=== PATIENT | male | born 1965 | race Caucasian/White ===

== ENCOUNTER 2017-10-18 21:04 | Inpatient (IN) | payer OTHER ==
[~2017-10-18] VITALS: Ht 177.8 cm; Wt 97.0 kg
[2017-10-18] MEDS ORDERED: ondansetron/PF 4mg/2ml inj IV ONE (21:35)
[2017-10-18] MEDS ORDERED: normal saline 1000ML IV soln IVB ONE (21:35)
[2017-10-18] MEDS ORDERED: fentaNYL/PF 50MCG/1 ML 2ML syringe IV ONE ×3 (21:35→22:45)
[2017-10-18] MEDS ORDERED: ketorolac trometh. 30mg/ml inj. IV ONE (21:35)
[2017-10-18 21:52] LABS: PROTHROMBIN TIME 10.6 SECONDS (9.0-12.0)
[2017-10-18 21:54] LABS: BASOPHILS % (AUTO) 0.5 % (0-1); EOSINOPHILS # (AUTO) 0.2 X10'3 (0-0.9); EOSINOPHILS % (AUTO) 2.1 % (0-6); HEMATOCRIT 43.5 % (42.0-52.0); HEMOGLOBIN 14.6 g/dl (14.0-17.9); LYMPHOCYTES # (AUTO) 1.3 X10'3 (1.1-4.8); LYMPHOCYTES % (AUTO) 13.4 % (21-51); MEAN CORPUSCULAR HEMOGLOBIN 28.8 PG (27.0-31.0); MEAN CORPUSCULAR HGB CONC 33.6 % (33.0-36.5); MEAN CORPUSCULAR VOLUME 85.6 FL (78-98); MEAN PLATELET VOLUME 9.9 FL (7.4-10.4); MONOCYTES # (AUTO) 0.7 X10'3 (0-0.9); MONOCYTES % (AUTO) 7.3 % (2-12); NEUTROPHILS # (AUTO) 7.8 X10'3 (1.8-7.7); NEUTROPHILS % (AUTO) 76.7 % (42-75); PLATELET COUNT 239 X10'3 (140-440); RED BLOOD COUNT 5.09 X10'6 (4.70-6.10); RED CELL DISTRIBUTION WIDTH 11.6 % (11.5-14.5)
[2017-10-18 21:56] LABS: ALANINE AMINOTRANSFERASE 47 U/L (12-78); ALBUMIN 4.2 G/DL (3.4-5.0); ALBUMIN/GLOBULIN RATIO 1.1 (1.1-1.5); ALKALINE PHOSPHATASE 48 IU/L (46-116); ANION GAP 11 (8-16); ASPARTATE AMINO TRANSFERASE 25 U/L (10-37); BILIRUBIN,TOTAL 0.4 MG/DL (0.1-1.0); BLOOD UREA NITROGEN 27 MG/DL (7-18); BUN/CREATININE RATIO 16.6 (5.4-32.0); CALCIUM 9.9 MG/DL (8.5-10.1); CHLORIDE 99 MMOL/L (99-107); CREATININE 1.63 MG/DL (0.60-1.10); GLUCOSE 124 MG/DL (70-104); POTASSIUM 3.6 MMOL/L (3.5-5.1); SODIUM 138 MMOL/L (135-145); TOTAL CARBON DIOXIDE 27.8 MMOL/L (24-32); TOTAL PROTEIN 7.9 G/DL (6.4-8.2); eGFR 45 ML/MIN
[2017-10-18 22:13] LABS: CLARITY,URINE SLIGHTLY CLOUDY (Clear); COLOR,URINE YELLOW (Yellow); GLUCOSE, URINE NEGATIVE (Neg); KETONES,URINE NEGATIVE (Neg); LEUKOCYTE ESTERASE ,URINE NEGATIVE (Neg); NITRITES, URINE NEGATIVE (Neg); OCCULT BLOOD,URINE LARGE (Neg); PH,URINE 5.5 (4.8-8.0); PROTEIN,URINE TRACE mg/dl (Neg); UROBILINOGEN,URINE 0.2 E.U/dL (0.2-1.0)
[2017-10-18 22:17] LABS: UA COLLECTION TYPE URINAL
[2017-10-18 22:19] LABS: BACTERIA,URINE FEW /HPF (Neg); MUCUS STRANDS FEW /LPF (Neg); RBC,URINE 50-100 /HPF (0-2); SQUAMOUS EPITHELIAL CELL,UR FEW /LPF (FEW); WBC,URINE 0-4 /HPF (0-4)
[2017-10-18] MEDS ORDERED: HYDR25TA4 PO (22:52)
[2017-10-18] MEDS ORDERED: HYDROmorphone 1 mg/ml syringe IV ONE (23:25)
[2017-10-18] MEDS ORDERED: FENO160T13 PO (23:26)
[2017-10-18] MEDS: tamsulosin 0.4mg capsule PO SCH (23:38)
[2017-10-18] MEDS ORDERED: potassium Cl 20 mEq SR tablet PO PRN ×2 (23:45)
[2017-10-18] MEDS ORDERED: magnesium Cl slow-release 64mg tablet PO PRN (23:45)
[2017-10-18] MEDS ORDERED: potassium Cl 40MEQ/NS 500ml 500 ML IV PRN ×2 (23:45)
[2017-10-18] MEDS ORDERED: magnesium 4gm in 100ml NS 100 ML IV PRN (23:45)
[2017-10-18] MEDS ORDERED: HYDROmorphone 1 mg/ml syringe IV PRN (23:45)
[2017-10-18] MEDS ORDERED: magnesium 1gm/100ml D5W IVPB 100 ML IV PRN (23:45)
[2017-10-18] MEDS ORDERED: HYDROchlorothiazide 25mg tablet PO ONE (23:55)
[2017-10-19] MEDS: normal saline 1000ml 1,000 ML IV SCH ×2 (00:13→17:16)
[2017-10-19 01:05] VITALS: BP 148/95
[2017-10-19 05:47] LABS: BASOPHILS % (AUTO) 0.4 % (0-1); EOSINOPHILS % (AUTO) 0.2 % (0-6); HEMATOCRIT 40.4 % (42.0-52.0); HEMOGLOBIN 13.8 g/dl (14.0-17.9); LYMPHOCYTES # (AUTO) 0.7 X10'3 (1.1-4.8); LYMPHOCYTES % (AUTO) 8.2 % (21-51); MEAN CORPUSCULAR HEMOGLOBIN 29.7 PG (27.0-31.0); MEAN CORPUSCULAR HGB CONC 34.2 % (33.0-36.5); MEAN CORPUSCULAR VOLUME 86.6 FL (78-98); MEAN PLATELET VOLUME 10.1 FL (7.4-10.4); MONOCYTES # (AUTO) 0.7 X10'3 (0-0.9); MONOCYTES % (AUTO) 7.6 % (2-12); NEUTROPHILS # (AUTO) 7.6 X10'3 (1.8-7.7); NEUTROPHILS % (AUTO) 83.6 % (42-75); PLATELET COUNT 193 X10'3 (140-440); RED BLOOD COUNT 4.66 X10'6 (4.70-6.10); RED CELL DISTRIBUTION WIDTH 11.9 % (11.5-14.5)
[2017-10-19] MEDS: HYDROmorphone 1 mg/ml syringe IV PRN ×3 (05:53→19:05)
[2017-10-19 06:09] LABS: ALBUMIN 3.7 G/DL (3.4-5.0); ANION GAP 9 (8-16); BLOOD UREA NITROGEN 27 MG/DL (7-18); BUN/CREATININE RATIO 13.8 (5.4-32.0); CALCIUM 8.9 MG/DL (8.5-10.1); CHLORIDE 102 MMOL/L (99-107); CREATININE 1.95 MG/DL (0.60-1.10); GLUCOSE 118 MG/DL (70-104); MAGNESIUM 1.7 MG/DL (1.5-2.4); POTASSIUM 4.4 MMOL/L (3.5-5.1); SODIUM 139 MMOL/L (135-145); TOTAL CARBON DIOXIDE 27.9 MMOL/L (24-32); eGFR 37 ML/MIN
[2017-10-19 07:11] VITALS: BP 134/80
[2017-10-19] MEDS: K and/or MAG REPLACEMENT MC SCH (07:27)
[2017-10-19] MEDS ORDERED: tamsulosin 0.4mg capsule PO ONE (09:55)
[2017-10-19 11:47] VITALS: BP 122/76
[2017-10-19] MEDS: ondansetron/PF 4mg/2ml inj IV PRN (17:12)
[2017-10-19 19:30] VITALS: BP 124/71
[2017-10-19] MEDS ORDERED: tamsulosin 0.4mg capsule PO SCH (21:00)
[2017-10-19] MEDS: tamsulosin 0.4mg capsule PO SCH (21:34)
[2017-10-19] MEDS: famotidine 20mg tablet PO SCH (21:34)
[2017-10-19] MEDS: acetaminophen 325mg tablet PO PRN (23:56)
[2017-10-20] VITALS (16 sets, daily range): BP systolic 97–146; BP diastolic 52–93
[2017-10-20] MEDS: HYDROmorphone 1 mg/ml syringe IV PRN ×4 (00:02→23:26)
[2017-10-20] MEDS: normal saline 1000ml 1,000 ML IV SCH ×4 (02:22→21:11)
[2017-10-20 05:01] LABS: BASOPHILS % (AUTO) 0.2 % (0-1); EOSINOPHILS # (AUTO) 0.2 X10'3 (0-0.9); EOSINOPHILS % (AUTO) 3.3 % (0-6); HEMATOCRIT 36.1 % (42.0-52.0); HEMOGLOBIN 12.5 g/dl (14.0-17.9); LYMPHOCYTES # (AUTO) 1.1 X10'3 (1.1-4.8); LYMPHOCYTES % (AUTO) 16.6 % (21-51); MEAN CORPUSCULAR HEMOGLOBIN 29.8 PG (27.0-31.0); MEAN CORPUSCULAR HGB CONC 34.5 % (33.0-36.5); MEAN CORPUSCULAR VOLUME 86.2 FL (78-98); MEAN PLATELET VOLUME 9.9 FL (7.4-10.4); MONOCYTES # (AUTO) 0.6 X10'3 (0-0.9); MONOCYTES % (AUTO) 10.1 % (2-12); NEUTROPHILS # (AUTO) 4.4 X10'3 (1.8-7.7); NEUTROPHILS % (AUTO) 69.8 % (42-75); PLATELET COUNT 153 X10'3 (140-440); RED BLOOD COUNT 4.19 X10'6 (4.70-6.10); RED CELL DISTRIBUTION WIDTH 12.5 % (11.5-14.5); WHITE BLOOD COUNT 6.4 X10'3 (4.5-11.0)
[2017-10-20 05:10] LABS: ANION GAP 2 (8-16); BLOOD UREA NITROGEN 29 MG/DL (7-18); CALCIUM 8.1 MG/DL (8.5-10.1); CHLORIDE 102 MMOL/L (99-107); CREATININE 2.41 MG/DL (0.60-1.10); GLUCOSE 110 MG/DL (70-104); MAGNESIUM 1.7 MG/DL (1.5-2.4); POTASSIUM 3.3 MMOL/L (3.5-5.1); SODIUM 135 MMOL/L (135-145); TOTAL CARBON DIOXIDE 30.7 MMOL/L (24-32); eGFR 29 ML/MIN
[2017-10-20] MEDS: ondansetron/PF 4mg/2ml inj IV PRN ×3 (08:08→23:33)
[2017-10-20] MEDS: K and/or MAG REPLACEMENT MC SCH (08:14)
[2017-10-20 10:00] LABS: PRE OP PROTIME 10.6 SECONDS (9.0-12.0)
[2017-10-20] MEDS: acetaminophen 325mg tablet PO PRN (10:03)
[2017-10-20 10:05] LABS: ALBUMIN 3.1 G/DL (3.4-5.0); ALBUMIN/GLOBULIN RATIO 0.9 (1.1-1.5); ALKALINE PHOSPHATASE 32 IU/L (46-116); BLOOD UREA NITROGEN 28 MG/DL (7-18); BUN/CREATININE RATIO 11.6 (5.4-32.0); CALCIUM 8.3 MG/DL (8.5-10.1); CHLORIDE 101 MMOL/L (99-107); CREATININE 2.42 MG/DL (0.60-1.10); PRE OP ALT 27 U/L (30-65); PRE OP ANION GAP 7 (8-16); PRE OP AST 20 U/L (10-37); PRE OP BILIRUB, TOTAL 0.4 MG/DL (0.0-1.0); PRE OP GLUCOSE 109 MG/DL (70-104); PRE OP POTASSIUM 3.4 MMOL/L (3.4-5.1); PRE OP SODIUM 137 MMOL/L (135-145); TOTAL CARBON DIOXIDE 29.2 MMOL/L (24-32); TOTAL PROTEIN 6.4 G/DL (6.4-8.2); eGFR 29 ML/MIN
[2017-10-20] MEDS: fenofibrate 145mg tablet PO SCH (11:49)
[2017-10-20] MEDS ORDERED: iohexol 300 MG/1 ML 50ml polymer ONE (16:13)
[2017-10-20] MEDS ORDERED: sevoflurane 250ml liquid IH ONE (17:32)
[2017-10-20] MEDS ORDERED: ondansetron/PF 4mg/2ml inj ONE (17:35)
[2017-10-20] MEDS ORDERED: dexamethasone sod phosphate 4mg/ml inj. ONE (17:35)
[2017-10-20] MEDS ORDERED: LIDOcaine 2% (20mg/ml) 5ml vial ONE (17:35)
[2017-10-20] MEDS ORDERED: propofol inj 20 ML IV ONE (17:35)
[2017-10-20] MEDS ORDERED: fentaNYL/PF 50MCG/1 ML 2ML syringe ONE (17:36)
[2017-10-20] MEDS ORDERED: midazolam 2 mg/2 ml injection ONE (17:36)
[2017-10-20] MEDS ORDERED: ceFAZolin 1000mg inj ONE ×2 (17:45)
[2017-10-20] MEDS ORDERED: ringers solution, lacted 1,000 ML IV SCH (18:01)
[2017-10-20] MEDS ORDERED: ondansetron/PF 4mg/2ml inj IV PRN (18:05)
[2017-10-20] MEDS ORDERED: morphine 4 MG/ML inj SYRINge IV PRN ×2 (18:05)
[2017-10-20] MEDS ORDERED: enalaprilat dihydrate 2.5mg/2ml vial IV PRN (18:05)
[2017-10-20] MEDS ORDERED: fentaNYL/PF 50MCG/1 ML 2ML syringe IV PRN ×2 (18:05)
[2017-10-20] MEDS ORDERED: hydrALAZINE 20mg/ml inj. IV PRN (18:05)
[2017-10-20] MEDS: famotidine 20mg tablet PO SCH (21:20)
[2017-10-20] MEDS: tamsulosin 0.4mg capsule PO SCH (21:20)
[2017-10-21] VITALS: BP 146/85
[2017-10-21 04:17] VITALS: BP 125/71
[2017-10-21 05:13] LABS: BASOPHILS % (AUTO) 0.3 % (0-1); EOSINOPHILS % (AUTO) 0.1 % (0-6); LYMPHOCYTES # (AUTO) 0.4 X10'3 (1.1-4.8); LYMPHOCYTES % (AUTO) 7.8 % (21-51); MEAN CORPUSCULAR HEMOGLOBIN 29.4 PG (27.0-31.0); MEAN CORPUSCULAR HGB CONC 34.1 % (33.0-36.5); MEAN CORPUSCULAR VOLUME 86.3 FL (78-98); MEAN PLATELET VOLUME 9.9 FL (7.4-10.4); MONOCYTES # (AUTO) 0.3 X10'3 (0-0.9); MONOCYTES % (AUTO) 6.1 % (2-12); NEUTROPHILS # (AUTO) 4.8 X10'3 (1.8-7.7); NEUTROPHILS % (AUTO) 85.7 % (42-75); PLATELET COUNT 182 X10'3 (140-440); RED BLOOD COUNT 4.41 X10'6 (4.70-6.10); RED CELL DISTRIBUTION WIDTH 12.4 % (11.5-14.5); WHITE BLOOD COUNT 5.6 X10'3 (4.5-11.0)
[2017-10-21 05:23] LABS: ALBUMIN 3.3 G/DL (3.4-5.0); ANION GAP 10 (8-16); BLOOD UREA NITROGEN 23 MG/DL (7-18); BUN/CREATININE RATIO 15.2 (5.4-32.0); CALCIUM 9.1 MG/DL (8.5-10.1); CHLORIDE 100 MMOL/L (99-107); CREATININE 1.51 MG/DL (0.60-1.10); GLUCOSE 136 MG/DL (70-104); MAGNESIUM 1.8 MG/DL (1.5-2.4); POTASSIUM 3.7 MMOL/L (3.5-5.1); SODIUM 135 MMOL/L (135-145); TOTAL CARBON DIOXIDE 25.1 MMOL/L (24-32); eGFR 49 ML/MIN
[2017-10-21 07:00] VITALS: BP 122/74
[2017-10-21] MEDS: K and/or MAG REPLACEMENT MC SCH (08:00)
[2017-10-21] MEDS: fenofibrate 145mg tablet PO SCH (08:59)
[2017-10-21] MEDS ORDERED: SULF1TAB49 PO (10:51)
[2017-10-21] MEDS: acetaminophen 325mg tablet PO PRN (11:06)
== END 2017-10-21 11:32 | disposition home or self-care (01) | DRG 694 ==
LOC: ER 21:05 → ED HOLD 23:43 → SUR 3N 10-19 01:02 → PACU 10-20 17:02 → SUR 3N 10-20 19:43
PROVIDERS: ADMIT Internal Medicine; ATTEND Internal Medicine
PROC: 0T768DZ Dilation of Right Ureter with Intraluminal Device, Via Natural or Artificial Opening Endoscopic (ICD-10-PCS; principal; 2017-10-20 17:32)
DX: N13.2 Hydronephrosis with renal and ureteral calculous obstruction (principal); N17.9 Acute kidney failure, unspecified; I10 Essential (primary) hypertension; Z85.820 Personal history of malignant melanoma of skin
CPT/HCPCS: 96361; 96374; 96375; 96376; 99285; Z7506; 36415; 74018; 74176; 76001; 80048; 80053; 81001; 83735; 85025; 85610; 85730; 87070; 93005; A4402; A7000; C1750; C1758; C1769; C2617; J0690; J1100; J1170; J1885; J2001; J2250; J2405; J2704; J3010; J7030; J7120; Q9967